=== PATIENT | female | born 1960 | race Two or more races ===

== ENCOUNTER 2023-06-11 12:24 | Day surgery (SDC) | payer OTHER, SELFPAY ==
[2023-06-08 12:35] VITALS: BP 149/96; PULSE 75; O2SAT 98
--- NOTE | 2023-06-11 12:35 | US_ITS ---
[address] [address] Patient Name: LUIS MANUEL CENTENO MRN: [id number] date: 1960 Sex: F Assigned Patient Location: [place] Current Patient Location: [place] Accession/Order Number: [id number] Exam Date: 06/11/2023 12:40 Report Date: 06/11/2023 14:21 At the request of: MICHELLE PAYNE Procedure: US biopsy thyroid EXAMINATION: US biopsy thyroid HISTORY: Squamous skin cancer, thyroid nodule COMPARISON: Ultrasound thyroid 05/15/2023 TECHNIQUE: After obtaining informed consent, ultrasound-guided fine needle aspiration was performed in the usual sterile manner. FINDINGS: IMAGING: Ultrasound. BIOPSY NEEDLE: 25-gauge; 3 separate passes LOCATION: Hypoechoic heterogeneous nodule 1.7 x 1.2 x 1.1 cm within inferior pole of left lobe. SPECIMEN TYPE: Cellular tissue. LOCAL ANESTHETIC: Buffered Xylocaine. COMPLICATIONS: None. LABORATORY: Prepared slide smears and washings for cell block evaluation. OTHER: Negative. PATHOLOGY: Pending. An addendum will be added when results are available. US/US biopsy thyroid IMPRESSION: 1. Uneventful ultrasound guided fine needle aspiration (FNA). 2. Pathology results are pending. Electronically authenticated by: DEJA CONNELLY Date: 06/11/2023 14:21
[2023-06-11] MEDS: LIDOCAINE HCL 10 ML, SODIUM BICARBONATE 1 MEQ INJ (13:35)
== END 2023-06-11 14:00 | disposition home or self-care (01) ==
LOC: US 12:29
PROVIDERS: Radiology Diagnostic Radiology; PCP Family Medicine; Visit Provider Otolaryngology
DX: E04.1 Nontoxic single thyroid nodule (principal)
CPT/HCPCS: 10005; 88173